=== PATIENT | female | born 1975 | race Caucasian/White ===

== ENCOUNTER 2024-08-28 22:11 | Emergency (ER) | payer BC ==
[~2024-08-28] VITALS: Ht 170.1 cm; Wt 68.0 kg
[2024-08-28] MEDS ORDERED: CALCIUM500 M1 PO (22:32)
[2024-08-28] MEDS ORDERED: CITALOPRAM20 MG PO (22:33)
[2024-08-28] MEDS ORDERED: CETIRIZINE HYDR10 MG PO (22:33)
[2024-08-28] MEDS ORDERED: LEVOTHYROXINE175 MCG PO (22:33)
[2024-08-28] MEDS ORDERED: THERATRUM COMP1 EACH PO (22:33)
[2024-08-29] MEDS ORDERED: Amoxicillin/Clavulanate Pota 875 MG TAB PO ONE (00:30)
[2024-08-29] MEDS ORDERED: CLARITIN10 MG PO (01:14)
[2024-08-29] MEDS ORDERED: AMOX-CLAV 875-1 EACH PO (01:14)
[2024-08-29] MEDS ORDERED: FLONASE ALLERG9.9 ML NAS (01:16)
== END 2024-08-29 01:37 | disposition home or self-care (01) ==
LOC: ED 22:11
DX: J32.9 Chronic sinusitis, unspecified (principal); Z20.822 Contact with and (suspected) exposure to COVID-19; J02.9 Acute pharyngitis, unspecified; H66.90 Otitis media, unspecified, unspecified ear

== ENCOUNTER → 2025-01-06 | Outpatient (CLI) | payer BC ==
[~2025-01-06] MED LIST: AMOX-CLAV 875-1 EACH PO; CALCIUM500 M1 PO; CETIRIZINE HYDR10 MG PO; CITALOPRAM20 MG PO; CLARITIN10 MG PO; FLONASE ALLERG9.9 ML NAS; LEVOTHYROXINE175 MCG PO; THERATRUM COMP1 EACH PO
[2025-01-06 11:57] LABS: BASO % 0.5 % (0.0-1.0); HEMATOCRIT 39.9 % (37.0-47.0); MEAN CELL VOLUME 90.7 fl (81.0-99.0); MEAN CORPUSCULAR HGB CONC 33.1 g/dl (33.0-37.0); MONO # 0.5 10*3/uL (0.1-1.0); MONO % 12.7 % (3.0-9.0); NEUT # 2.3 10*3/uL (2.3-7.9); NEUT % 55.5 % (47.0-73.0); PLATELET COUNT AUTOMATED 267 10*3/uL (130-400); RED CELL DISTRI WIDTH 12.7 % (0-14.5); WHITE BLOOD COUNT 4.1 10*3/uL (4.8-10.8)
[2025-01-06 12:31] LABS: ALKALINE PHOSPHATASE 81 U/L (46-116); BUN 11 mg/dl (9-23); CHLORIDE 107 mmol/L (98-107); CHOLESTEROL 123 mg/dL (<200); LDL CHOLESTEROL 44 mg/dL (9-159); POTASSIUM 3.8 mmol/L (3.4-5.1); SGPT/ALT 33 U/L (5-49); TOTAL PROTEIN 6.7 gm/dL (6.0-8.0)
[2025-01-06 12:34] LABS: VITAMIN D, 25-HYDROXY 48.8 ng/mL (30-100)
== END | disposition home or self-care (01) ==
LOC: LAB 11:24
PROVIDERS: ATTEND Physician Assistant
DX: E53.8 Deficiency of other specified B group vitamins (principal); K90.9 Intestinal malabsorption, unspecified; E55.9 Vitamin D deficiency, unspecified; Z98.84 Bariatric surgery status